=== PATIENT | female | born 1945 | race Caucasian/White ===

== ENCOUNTER → 2017-09-29 | Outpatient (CLI) | payer OTHER ==
[~2017-09-29] MED LIST: CALCA500S6; ESOM20; FOSI10 PO; HYDACE5 PO; HYDCHL25 PO; IBUP800 PO; LOVA40; METO100ER PO; OMEP20ER PO; TRIHYD5075; VITAMIN D-32000 UNIT
== END | disposition home or self-care (01) ==
LOC: LAB SHORT 11:21 → PLD 11:21
DX: L82.1 Other seborrheic keratosis (principal); L29.8 Other pruritus
CPT/HCPCS: 88305

== ENCOUNTER 2020-05-29 07:44 | Day surgery (SDC) | payer MEDICARE ==
[~2020-05-29] VITALS: Ht 170.2 cm; Wt 77.7 kg
[~2020-05-29 07:44] MED LIST changes: +DYAZIDE 37.5-21 EACH PO; +METO50 PO; +MULTIVITAMINS1 EAC3 PO; +POTA10T PO; +Vitamin D2000 UNIT PO
== END 2020-05-29 09:54 | disposition home or self-care (01) ==
LOC: ORSCSDS 07:44
PROVIDERS: Internal Medicine Gastroenterology
PROC: 0DB58ZX Excision of Esophagus, Via Natural or Artificial Opening Endoscopic, Diagnostic (ICD-10-PCS; principal; 2020-05-29 09:00)
DX: K22.70 Barrett's esophagus without dysplasia (principal); K44.9 Diaphragmatic hernia without obstruction or gangrene; I10 Essential (primary) hypertension; E78.00 Pure hypercholesterolemia, unspecified; N18.30 Chronic kidney disease, stage 3 unspecified; Z79.899 Other long term (current) drug therapy
CPT/HCPCS: 88305; J0330; J0461; J2405; J2704; J7120

== ENCOUNTER → 2021-11-14 | Outpatient (CLI) | payer OTHER | END | disposition home or self-care (01) | LOC: LAB 07:54 → LAB SHORT 07:54 | DX: N39.0 Urinary tract infection, site not specified (principal) | CPT/HCPCS: 87077; 87086; 87186 ==

== ENCOUNTER → 2022-05-30 | Outpatient (CLI) | payer OTHER | END | disposition home or self-care (01) | LOC: LAB SHORT 10:18 → LAB 10:18 | DX: N39.0 Urinary tract infection, site not specified (principal) | CPT/HCPCS: 87086 ==

== ENCOUNTER 2022-10-04 09:03 | Day surgery (SDC) | payer OTHER ==
[~2022-10-04] VITALS: Ht 170.2 cm; Wt 73.3 kg
[2022-10-04] MEDS ORDERED: XARELTO20 MG (09:29)
== END 2022-10-04 11:35 | disposition home or self-care (01) ==
LOC: ORSCSDS 09:03
PROVIDERS: Internal Medicine Gastroenterology
PROC: 0DBK8ZX Excision of Ascending Colon, Via Natural or Artificial Opening Endoscopic, Diagnostic (ICD-10-PCS; principal; 2022-10-04 10:30)
DX: Z12.11 Encounter for screening for malignant neoplasm of colon (principal); Z86.010 Personal history of colon polyps; D12.2 Benign neoplasm of ascending colon; K57.30 Diverticulosis of large intestine without perforation or abscess without bleeding; K22.70 Barrett's esophagus without dysplasia; Z87.891 Personal history of nicotine dependence; Z79.01 Long term (current) use of anticoagulants; Z79.899 Other long term (current) drug therapy
CPT/HCPCS: J2704; J7120

== ENCOUNTER 2023-05-21 08:40 | Day surgery (SDC) | payer OTHER ==
[~2023-05-21] VITALS: Ht 167.6 cm; Wt 70.9 kg
[~2023-05-21 08:40] MED LIST changes: +XARELTO20 MG
[2023-05-21 10:47] VITALS: BP 103/64
== END 2023-05-21 10:33 | disposition home or self-care (01) ==
LOC: ORSCSDS 08:40
PROVIDERS: Internal Medicine Gastroenterology
PROC: 0DB58ZX Excision of Esophagus, Via Natural or Artificial Opening Endoscopic, Diagnostic (ICD-10-PCS; principal; 2023-05-21 10:00)
DX: K22.70 Barrett's esophagus without dysplasia (principal); I48.91 Unspecified atrial fibrillation; E11.9 Type 2 diabetes mellitus without complications; G47.30 Sleep apnea, unspecified; Z87.891 Personal history of nicotine dependence; Z79.01 Long term (current) use of anticoagulants; Z79.899 Other long term (current) drug therapy
CPT/HCPCS: 88305; J2704; J7120

== ENCOUNTER → 2024-04-27 | Outpatient (CLI) | payer OTHER | END | disposition home or self-care (01) | LOC: LAB SHORT 11:46 → LAB 11:46 | DX: N39.0 Urinary tract infection, site not specified (principal) | CPT/HCPCS: 87077; 87086; 87186 ==